=== PATIENT | female | born 1990 | race Caucasian/White ===

== ENCOUNTER 2019-05-16 12:44 | Inpatient (IN) | payer MEDICAID, SELFPAY ==
[2019-05-16 12:30] VITALS: BMI 28.2
--- NOTE | 2019-05-16 12:32 | PCM.HP.OB ---
- Problem List (1) 38 weeks gestation of Status: Acute (2) SROM (spontaneous rupture of membranes) Status: Acute (3) Uterine contractions Status: Acute (4) Bicornuate uterus Status: Acute (5) History of miscarriage Status: Acute History Date of Admission: 05/16/19 Final DAMIAN: 05/30/19 Gestational age: 38 Weeks and 0 Days History of this : This is a 28 year-old, G 2, P 0010, at 38 weeks gestational age who presents with leaking of clear-blood tinged fluid at home starting around 0830 AM and ctx's q 2 min. +FM. Home Medications: Home Medications Vits [Prenatabs FA] 1 tab PO DAILY 05/16/19 Number of Fetus(es): 1 NST - FHR Rate Baby A Baseline: 140 Variability:: Moderate Accelerations:: 15 x 15 Decelerations:: None NST Reactive:: Yes FHR Category:: Category I History Past Pregnancies: Past Pregnancies Delivery Date Name GA/ Weeks Outcome Route Wt Infant Sex Labor Length Anesthesia Delivery Location Provider FOB Labs: GBS pos GC/CT neg Hgb 11.1 1 hr GTT 132 HIV neg Hep B neg RPR neg RNI Rh positive Ab screen neg Review of Systems Gynecological: Reports: - - +Blood tinged fluid and ctx's q 2 min Physical Exam General: Alert, No apparent distress HEENT: Atraumatic Abdomen: Soft, Non Tender, Gravid Extremities:: No edema Neurological: Neuro 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 - Admit for labor management - Routine intrapartum care - PCN for GBS positive - Epidural prn - RNI- Will need MMR - EFW < 4500 g and pelvis adequate
[2019-05-16 12:37] LABS: ROM Internal Control Test YES-OK TO RESULT pt. (Internal QC)
[2019-05-16 12:38] LABS: ROM Patient Test POSITIVE (Negative)
[2019-05-16 13:59] LABS: Absolute Lymphocyte Count 1.86 X10^3/uL (0.83-4.51); Absolute Neutrophil Count 13.7 X10^3/uL (2.0-7.7); Basophil# 0.06 X10^3/uL; Basophil% 0.4 % (0-1); Eosinophil# 0.04 X10^3/uL; Eosinophils% 0.2 % (0-5); Hematocrit 36.3 % (37-47); Hemoglobin 12.5 g/dL (12.0-15.0); Lymphocyte # 1.86 X10^3/ul (4.0); Lymphocyte % 11.2 % (19-41); Mean Corp Hgb Conc 34.4 g/dL (32-36); Mean Corpuscular Hgb 30.6 pg (27.0-32.0); Mean Platelet Vol. 9.6 fl (6.2-12.0); Monocyte% 5.4 % (0-10); NRBC Flagged by Analyzer 0 % (0-5); Neutrophil # 13.68 X10^3/uL (2.7-7.7); Neutrophil % 82.1 % (47-70); Platelet Count 315 K/mm3 (150-450); RBC Distribution Width CV 13.2 % (11.6-14.6); RBC Distribution Width SD 42.8 fl (35.1-43.9); Red Blood Count 4.08 M/mm3 (4.2-5.4); White Blood Count 16.7 K/mm3 (4.4-11.0)
[2019-05-16] MEDS: Ondansetron 4 MG/2 ML Vial IV (14:19)
[2019-05-16] MEDS: Lactated Ringers 1,000 ML 999 ML IV (14:23)
[2019-05-16] MEDS: Lactated Ringers 1,000 ML 50 ML IV (15:33)
[2019-05-16] MEDS: fentaNYL-bupivacaine (epidural) 100 ML BAG EPIDURAL ×2 (15:54→21:05)
[2019-05-16] MEDS: Oxytocin 30 units/NS 500 ml 30 UNITS/500 ML IV.SOLN 334 UNITS IV (23:49)
--- NOTE | 2019-05-17 00:06 | PCM.OPRPT ---
Problem List (1) 38 weeks gestation of Status: Acute (2) SROM (spontaneous rupture of membranes) Status: Acute (3) Uterine contractions Status: Acute (4) Bicornuate uterus Status: Acute (5) History of miscarriage Status: Acute Report of Operation Date of Procedure: 05/17/19 Pre-Operative Diagnosis: 38 week gestation, SROM, labor Post-Operative Diagnosis: As above, nuchal cord x 1 Surgery/Procedure Performed:: ANUJA Description of Surgical Findings:: Patient had been pushing for 3 hours with poor maternal effort at the end. heart rate tracing showed recurrent variable decelerations with pushing. Nuchal cord x1 noted upon delivery. Normal-appearing and intact placenta with a three-vessel cord. Type of Anesthesia:: Epidural Special Medications: None Specimen's removed: Placenta Drains: Camilo Estimated Blood Loss (mL): 250 Description of Procedure: Patient had been pushing for a total of 3 hours with poor maternal effort at the end and recurrent variable decelerations with pushing. Discussed risks, benefits, and alternatives to a vacuum-assisted vaginal delivery. Patient was comfortable with epidural. Camilo was in place draining bladder. Infant was at +2 station. Patient gave verbal consent for vacuum-assisted vaginal delivery, and desired to proceed with a vacuum delivery. The vacuum was placed and suction was applied along with gentle traction for 3 contractions. The vacuum was used for a total of 3 pulls with no pop offs. The vacuum was removed and a midline episiotomy was made, and the head was delivered and a nuchal cord x1 was noted and reduced. The anterior shoulder, posterior shoulder, followed by body of infant were delivered without any force or delay. A viable female was delivered atraumatically and placed on maternal abdomen. The cord was clamped and cut after a 60 sec later. Cord gases were obtained. The placenta was delivered with fundal massage and noted to be intact and normal-appearing with a three-vessel cord. Uterus was explored x1. A second-degree perineal laceration was repaired with 3-0 Vicryl in the usual fashion. Fundus was firm and bleeding hemostatic. Counts were correct. Vaginal sweep was performed. Grafts/Implants Used: None - Complications None - Admit VTE Documentation VTE Present on Admission: No Vaginal Delivery Maternal Presentation: Active Labor, Spontaneous Rupture of Membranes Amniotic Membrane Rupture Type: Spontaneous at home Amniotic Fluid Description: Clear Surgery/ Procedure Performed: Vacuum Assisted Vaginal Delivery Type of Anesthesia: Epidural Presentation: GRICELDA Placental Delivery Description: Expressed Cord Vessel Description: 3 Vessels Nuchal Cord Compression: Without compression Cord Gases drawn per routine: ABG, VBG Cord Entanglement: Around neck x 1, loose Drain: Camilo to straight drain Infant A gender: Female (1 minute): 9 (5 minute): 9 Episiotomy Description: Midline Laceration: 2nd degree Medications given after delivery: IV Pitocin Complications: None
[2019-05-17 03:40] VITALS: BP 106/53; PULSE 104; RESP 15; TEMP 37.1
[2019-05-17] MEDS: Ibuprofen 600 MG Tablet PO ×2 (06:41→15:11)
[2019-05-17 08:05] VITALS: BP 93/50; PULSE 98; RESP 17; TEMP 37.1
--- NOTE | 2019-05-17 11:27 | PN.OBGYN_ITS ---
Patient Problems: Active and Suspected Problems 38 weeks gestation of (Acute) SROM (spontaneous rupture of membranes) (Acute) Uterine contractions (Acute) Bicornuate uterus (Acute) History of miscarriage (Acute) Subjective: Patient is doing well. Pain well controlled. Ambulating and voiding without difficulty. Lochia normal. Denies lightheadedness, dizziness, chest pain, shortness of breath, leg pain. - Physical Exam Vitals/I&O's: Vital Signs Temp Pulse Resp BP 98.8 F 98 17 93/50 L 05/17/19 08:05 05/17/19 08:05 05/17/19 08:05 05/17/19 08:05 Oxygen Delivery Method Room Air Weight: 159 lb 3.2 oz Body Mass Index (BMI) 28.2 Intake and Output for Last 24 Hours 05/15/19 05/16/19 05/17/19 23:59 23:59 23:59 Intake Total 1868.33 / 1868.33 500 / 500 Output Total 2200 / 2200 1200 / 1200 Balance -331.67 / -331.67 -700 / -700 General: Alert, No apparent distress HEENT: Atraumatic Abdomen: Soft, Non Tender, - - FF@U-1 Extremities: No edema, No Calf Tenderness Skin: No rashes Neurological: Neuro grossly intact Psych/Mental Status: Normal Affect, Appropriate Laboratory Results 05/16/19 12:11: Vag Amniotic Fld Detect POSITIVE H 05/16/19 13:45: WBC 16.7 H, RBC 4.08 L, Hgb 12.5, Hct 36.3 L, MCV 89.0, MCH 3 0.6, MCHC 34.4, RDW Std Deviation 42.8, RDW Coeff of Janay 13.2, Plt Count 315, MPV 9.6, Immature Gran % (Auto) 0.700, Neut % (Auto) 82.1 H, Lymph % (Auto) 11.2 L, [place] % (Auto) 5.4, Eos % (Auto) 0.2, Baso % (Auto) 0.4, Absolute Neuts (auto) 13.7 H, Absolute Lymphs (auto) 1.86, Nucleated RBC % 0 05/16/19 13:45: Blood Type A POSITIVE, Antibody Screen NEGATIVE Current Medications Acetaminophen (Tylenol) 1,000 mg PO Q8H PRN PRN PRN Reason: Pain Score 1-3/10 Bisacodyl (Dulcolax) 10 mg RECTAL UD PRN PRN Reason: If no BM Dibucaine (Dibucaine) 1 applic TOPICAL TID PRN PRN; Protocol PRN Reason: Discomfort Hydrocortisone (Hytone) 1 applic TOPICAL TID PRN PRN; Protocol PRN Reason: Discomfort Ibuprofen (Motrin) 600 mg PO Q6H PRN PRN PRN Reason: Pain Score 1-3/10 Last Admin: 05/17/19 06:41 Dose: 600 mg Documented by: Methylergonovine Maleate (Methergine) 0.2 mg IM X1 PRN PRN Reason: Excess bleeding/uterine atony Ondansetron HCl (Zofran) 4 mg IV Q4H PRN PRN PRN Reason: Nausea Senna/Docusate Sodium (Senokot-S, Leanna-Colace) 1 - 2 tablet PO DAILY PRN PRN PRN Reason: Constipation Simethicone (Mylicon) 80 mg PO PCHS PRN PRN Reason: Indigestion/Stomach pain Sodium Chloride () 5 - 15 ml IV UD PRN PRN Reason: SALINE FLUSH Medical Necessity - Tobacco Use Smoking Status: Never smoker Assessment/Plan All Active Problems 38 weeks gestation of (Acute) SROM (spontaneous rupture of membranes) (Acute) Uterine contractions (Acute) Bicornuate uterus (Acute) History of miscarriage (Acute) Patient is day 1 from a vacuum-assisted vaginal delivery. - Doing well - - Dispo: Routine care. Anticipate d/c home tomorrow
[2019-05-17 12:45] VITALS: BP 110/70; PULSE 103; RESP 15; TEMP 36.9
[2019-05-17 16:20] VITALS: BP 113/70; PULSE 96; RESP 16; TEMP 37.1
[2019-05-17 20:50] VITALS: BP 103/69; PULSE 78; RESP 16; TEMP 36.6
[2019-05-18] MEDS: Ibuprofen 600 MG Tablet PO ×2 (00:16→11:20)
[2019-05-18 01:25] VITALS: BP 97/58; PULSE 81; RESP 16; TEMP 36.9
--- NOTE | 2019-05-18 08:29 | DCINST_ITS ---
Discharge Diet: No Restrictions Discharge Activity: May Drive, May Shower May resume sexual activity in: 6 weeks Weight Bearing Status: Weight bearing as tolerated Additional Instructions: If you experience any of the following, contact your healthcare provider. * Bleeding that soaks a pad every hour for 2 hours * Fever 100.4 or higher * Unrelieved incision or abdominal pain * Swelling, redness, discharge or bleeding from your incision or episiotomy site * Your incision begins to separate * Problems urinating (including inability to urinate or burning while urinating). * Visual changes * Severe headache * Flu-like symptoms * Pain or redness in one of both of your breasts * Pain, warmth, tenderness or swelling in your legs, especially the calf area * Frequent nausea and vomiting * Symptoms of depression or anxiety If you experience any of the following, call 911 or go to the nearest Emergency Room. * Chest pain * Problems breathing * Seizure activity * Partial or complete paralysis of a body part, slurred speech, weakness or drooping of the face, or a sudden inability to walk or hold your balance Allergies/Adverse Reactions: Allergies No Known Allergies Allergy (Verified 05/16/19 12:33) Medications to take at Discharge Vits [Prenatabs FA ] 1 tab PO DAILY 05/16/19 Acetaminophen [Tylenol] 1,000 mg PO Q8H PRN PRN tab 05/18/19 Ibuprofen [Motrin] 600 mg PO Q6H PRN PRN tab 05/18/19 Primary Care Physician: Care Physician,No Primary [Primary Care Provider] - Test Results: Test results from this visit will be discussed in further detail at your follow- up appointment, if applicable.
--- NOTE | 2019-05-18 08:29 | PCM.DCVAG ---
Discharge Diet: No Restrictions Discharge Activity: May Drive, May Shower May resume sexual activity in: 6 weeks Weight Bearing Status: Weight bearing as tolerated Additional Instructions: If you experience any of the following, contact your healthcare provider. Bleeding that soaks a pad every hour for 2 hours Fever 100.4 or higher Unrelieved incision or abdominal pain Swelling, redness, discharge or bleeding from your incision or episiotomy site Your incision begins to separate Problems urinating (including inability to urinate or burning while urinating). Visual changes Severe headache Flu-like symptoms Pain or redness in one of both of your breasts Pain, warmth, tenderness or swelling in your legs, especially the calf area Frequent nausea and vomiting Symptoms of depression or anxiety If you experience any of the following, call 911 or go to the nearest Emergency Room. Chest pain Problems breathing Seizure activity Partial or complete paralysis of a body part, slurred speech, weakness or drooping of the face, or a sudden inability to walk or hold your balance Allergies/Adverse Reactions: Allergies No Known Allergies Allergy (Verified 05/16/19 12:33) Medications to take at Discharge Vits [Prenatabs FA ] 1 tab PO DAILY 05/16/19 Acetaminophen [Tylenol] 1,000 mg PO Q8H PRN PRN tab 05/18/19 Ibuprofen [Motrin] 600 mg PO Q6H PRN PRN tab 05/18/19 Primary Care Physician: Care Physician,No Primary [Primary Care Provider] - Test Results: Test results from this visit will be discussed in further detail at your follow-up appointment, if applicable.
--- NOTE | 2019-05-18 08:30 | PCM.PN.OB ---
Patient Problems: Active and Suspected Problems 38 weeks gestation of (Acute) SROM (spontaneous rupture of membranes) (Acute) Uterine contractions (Acute) Bicornuate uterus (Acute) History of miscarriage (Acute) Subjective: Reports sore nipples. - Physical Exam Vitals/I&O's: Vital Signs Temp Pulse Resp BP 98.4 F 81 16 97/58 L 05/18/19 01:25 05/18/19 01:25 05/18/19 01:25 05/18/19 01:25 Oxygen Delivery Method Room Air Weight: 159 lb 3.2 oz Body Mass Index (BMI) 28.2 Intake and Output for Last 24 Hours 05/16/19 05/17/19 05/18/19 23:59 23:59 23:59 Intake Total 1868.33 / 1868.33 500 / 500 Output Total 2200 / 2200 1200 / 1200 Balance -331.67 / -331.67 -700 / -700 General: Alert, Oriented x3 Abdomen: Soft, Non Tender, Non-Distended - ff mid & below umb Extremities: No Calf Tenderness Neurological: Cranial nerves II-XII grossly intact Current Medications Acetaminophen (Tylenol) 1,000 mg PO Q8H PRN PRN PRN Reason: Pain Score 1-3/10 Bisacodyl (Dulcolax) 10 mg RECTAL UD PRN PRN Reason: If no BM Dibucaine (Dibucaine) 1 applic TOPICAL TID PRN PRN; Protocol PRN Reason: Discomfort Hydrocortisone (Hytone) 1 applic TOPICAL TID PRN PRN; Protocol PRN Reason: Discomfort Ibuprofen (Motrin) 600 mg PO Q6H PRN PRN PRN Reason: Pain Score 1-3/10 Last Admin: 05/18/19 00:16 Dose: 600 mg Documented by: Methylergonovine Maleate (Methergine) 0.2 mg IM X1 PRN PRN Reason: Excess bleeding/uterine atony Ondansetron HCl (Zofran) 4 mg IV Q4H PRN PRN PRN Reason: Nausea Senna/Docusate Sodium (Senokot-S, Leanna-Colace) 1 - 2 tablet PO DAILY PRN PRN PRN Reason: Constipation Simethicone (Mylicon) 80 mg PO PCHS PRN PRN Reason: Indigestion/Stomach pain Sodium Chloride () 5 - 15 ml IV UD PRN PRN Reason: SALINE FLUSH Medical Necessity - Tobacco Use Smoking Status: Never smoker Assessment/Plan All Active Problems 38 weeks gestation of (Acute) SROM (spontaneous rupture of membranes) (Acute) Uterine contractions (Acute) Bicornuate uterus (Acute) History of miscarriage (Acute) PPD#2 D/c home
[2019-05-18 09:30] VITALS: BP 113/63; PULSE 90; RESP 16; TEMP 36.9
[2019-05-18] MEDS: Senna/Docusate Sodium 1 Tablet PO (11:20)
[2019-05-18 13:06] VITALS: BP 105/62; PULSE 85; RESP 16; TEMP 37
--- NOTE | 2019-05-18 13:11 | NURSING ---
Pt given teaching about MMR vaccine and the importance of the being vaccinated with a but pt refused vaccine at this time as well as the flu vaccine.
== END 2019-05-18 14:45 | disposition home or self-care (01) | DRG 560 ==
LOC: WPOUT 12:45 → WP 12:45
PROVIDERS: Admitting Provider Obstetrics & Gynecology; Visit Provider Obstetrics & Gynecology
DX: O76 Abnormality in fetal heart rate and rhythm complicating labor and delivery (principal); O69.81X0 Labor and delivery complicated by cord around neck, without compression, not applicable or unspecified; Z37.0 Single live birth; Z3A.38 38 weeks gestation of pregnancy; O34.03 Maternal care for unspecified congenital malformation of uterus, third trimester; Q51.3 Bicornate uterus; O99.824 Streptococcus B carrier state complicating childbirth; O70.1 Second degree perineal laceration during delivery
CPT/HCPCS: 59025; 59050; 84112; 85025; 86850; 86900; 86901; 99218; J7120; G0378; J2405